=== PATIENT | female | born 1950 | race American Indian/Alaskan Native ===

== ENCOUNTER 2019-07-24 17:02 | Emergency (ER) | payer MEDICARE ==
[2019-07-24 18:57] VITALS: BP 166/65
--- NOTE | 2019-07-24 18:59 | Event Note ---
ED Screening Note Date of service: 07/24/19 Time: 18:56 ED Screening Note: 68 y/o female comes in for chronic back and leg pain. Was seen by her PCP last month and given an injection. She has been taking Meloxicam 15mh daily. Denies any recent injuries or falls. This initial assessment/diagnostic orders/clinical plan/treatment(s) is/are subject to change based on patients health status, clinical progression and re- assessment by fellow clinical providers in the ED. Further treatment and workup at subsequent clinical providers discretion. Patient/guardian urged not to elope from the ED as their condition may be serious if not clinically assessed and managed. Initial orders include:
[2019-07-24] MEDS ORDERED: oxyCODONE /ACETAMINOPHEN 5-325MG TAB PO ONE (20:00)
[2019-07-24] MEDS ORDERED: predniSONE 20 MG TAB PO ONE (20:00)
[2019-07-24] MEDS ORDERED: ONDANSETRON 4 MG ODT TAB PO ONE (20:00)
[2019-07-24 20:24] LABS: Basophils # (Auto) 0.1 K/mm3 (0.0-0.1); Basophils % (Auto) 1.2 % (0.0-1.8); Eosinophils # (Auto) 0.4 K/mm3 (0.0-0.4); Eosinophils % (Auto) 4.5 % (0.0-4.3); Hematocrit 37.1 % (30.3-42.9); Hemoglobin 12.7 gm/dl (10.1-14.3); Lymphocytes # (Auto) 2.1 K/mm3 (1.2-5.4); Lymphocytes % (Auto) 25.8 % (13.4-35.0); Mean Corpuscular HGB Conc 34 % (30-34); Mean Corpuscular Volume 85 fl (79-97); Monocytes # (Auto) 0.4 K/mm3 (0.0-0.8); Platelet Count 362 K/mm3 (140-440); Red Blood Count 4.34 M/mm3 (3.65-5.03); Red Cell Distribution Width 14.6 % (13.2-15.2)
[2019-07-24 20:52] LABS: Albumin 4.5 g/dL (3.9-5); Calcium 9.7 mg/dL (8.4-10.2)
[2019-07-24 21:09] LABS: Bilirubin,Urine NEG (Negative); Blood,Urine NEG (Negative); Color,Urine Yellow (Yellow); Mucus,Urine FEW /HPF; Protein,Urine <15 mg/dL mg/dL (Negative); Urobilinogen,Urine < 2.0 mg/dL (<2.0)
--- NOTE | 2019-07-24 21:46 | Emergency Department Report ---
ED Back Pain/Injury HPI - General Chief Complaint: Extremity Injury, Lower Stated Complaint: HIP/FEET PAIN Time Seen by Provider: 07/24/19 18:55 Source: patient Limitations: No Limitations - History of Present Illness Initial Comments: Patient is a 68-year-old female with a history of hypertension, chronic low back pain, chronic osteoarthritis and [id number] diabetes who presents to the ED with acute exacerbation of chronic low back pain radiating to the bilateral hips and bilateral knees for the last 2 weeks, worse in the last 3 days. Patient states that she has been taking meloxicam 15 mg daily with no relief. Patient denies fall, traumatic injury, dysuria, hematuria, urinary frequency and urgency, heavy lifting, nausea and vomiting, numbness and tingling or weakness of lower extremities bilaterally, urinary or bowel incontinence, fever and chills, abdominal pain, chest pain or shortness of breath. MD Complaint: back pain, other (bilateral) -: Gradual, week(s) (1) Similar Symptoms Previously: Yes Place: home Radiation: left leg, right leg Severity: severe Severity scale (0 -10): 7 Quality: sharp, aching Consistency: constant Improves With: none Worsens With: movement, walking Associated Symptoms: denies other symptoms. denies: confusion, weakness, chest pain, numbness, difficulty walking, cough, difficulty urinating, diaphoresis, fever/chills, constipation, abdominal pain, loss of appetite, nausea/vomiting, rash, shortness of breath, syncope Treatments Prior to Arrival: NSAIDS - Related Data Previous Rx's Medication Instructions Recorded Last Taken Type Ibuprofen [Motrin] 600 mg PO Q8H PRN #20 tablet 07/29/15 Unknown Rx diazePAM TAB [Valium] 2 mg PO TID PRN #12 tablet 07/29/15 Unknown Rx predniSONE [Deltasone] 40 mg PO QDAY #10 tab 07/24/19 Unknown Rx tiZANidine [Zanaflex 4mg TAB] 4 mg PO QHS PRN #15 tablet 07/24/19 Unknown Rx traMADoL [Ultram] 50 mg PO Q6HR PRN #15 tablet 07/24/19 Unknown Rx Allergies Allergy/AdvReac Type Severity Reaction Status Date / Time No Known Allergies Allergy Verified 07/29/15 10:39 ED Review of Systems ROS: Stated complaint: HIP/FEET PAIN Other details as noted in HPI Constitutional: denies: chills, fever Eyes: denies: eye pain, eye discharge, vision change ENT: denies: ear pain, throat pain Respiratory: denies: cough, shortness of breath, wheezing Cardiovascular: denies: chest pain, palpitations Endocrine: no symptoms reported Gastrointestinal: denies: abdominal pain, nausea, diarrhea Genitourinary: denies: urgency, dysuria, discharge Musculoskeletal: back pain (lower), arthralgia (bilateral hip and knee pain). denies: joint swelling Skin: denies: rash, lesions Neurological: denies: headache, weakness, paresthesias Psychiatric: denies: anxiety, depression Hematological/Lymphatic: denies: easy bleeding, easy bruising ED Past Medical Hx - Past Medical History Hx Hypertension: Yes Hx Diabetes: Yes - Surgical History Additional Surgical History: hysterectomy, cataract surgery - Social History Smoking Status: Never Smoker Substance Use Type: None - Medications Home Medications: Home Medications Medication Instructions Recorded Confirmed Last Taken Type Ibuprofen [Motrin] 600 mg PO Q8H PRN #20 tablet 07/29/15 Unknown Rx diazePAM TAB [Valium] 2 mg PO TID PRN #12 tablet 07/29/15 Unknown Rx predniSONE [Deltasone] 40 mg PO QDAY #10 tab 07/24/19 Unknown Rx tiZANidine [Zanaflex 4mg TAB] 4 mg PO QHS PRN #15 tablet 07/24/19 Unknown Rx traMADoL [Ultram] 50 mg PO Q6HR PRN #15 tablet 07/24/19 Unknown Rx ED Physical Exam - General Limitations: No Limitations General appearance: alert, in no apparent distress - Head Head exam: Present: atraumatic, normocephalic - Eye Eye exam: Present: normal appearance, PERRL, EOMI Pupils: Present: normal accommodation - ENT ENT exam: Present: normal exam, normal orophraynx, mucous membranes moist, TM's normal bilaterally, normal external ear exam - Neck Neck exam: Present: normal inspection, full ROM - Respiratory Respiratory exam: Present: normal lung sounds bilaterally. Absent: respiratory distress, wheezes, rales, rhonchi, chest wall tenderness, accessory muscle use, decreased breath sounds, prolonged expiratory - Cardiovascular Cardiovascular Exam: Present: regular rate, normal rhythm, normal heart sounds. Absent: systolic murmur, diastolic murmur, rubs, gallop - GI/Abdominal GI/Abdominal exam: Present: soft, normal bowel sounds. Absent: tenderness, guarding, hyperactive bowel sounds, hypoactive bowel sounds, organomegaly - Extremities Exam Extremities exam: Present: normal inspection, full ROM, tenderness (palpable bilateral hip and knee joint tenderness), normal capillary refill. Absent: joint swelling, calf tenderness - Back Exam Back exam: Present: normal inspection, full ROM, tenderness (palpable lumbosacral paraspinal musculoskeletal tenderness), muscle spasm, paraspinal tenderness - Neurological Exam Neurological exam: Present: alert, oriented X3, CN II-XII intact, normal gait, reflexes normal - Psychiatric Psychiatric exam: Present: normal affect, normal mood - Skin Skin exam: Present: warm, dry, intact, normal color. Absent: rash ED Course Vital Signs 07/24/19 18:55 Temperature 98.3 F Pulse Rate 87 Respiratory 18 Rate Blood Pressure 166/65 O2 Sat by Pulse 98 Oximetry ED Medical Decision Making - Lab Data Result diagrams: 07/24/19 20:03 07/24/19 20:03 - Medical Decision Making This is a 68-year-old female with a history of chronic osteoarthritis and chronic low back pain who presented to the ED with acute exacerbation of her chronic pain, characterized by bilateral hip and knee joint pains, low back pain and generalized muscle aches for the last 2 weeks. In the ED, patient is alert and oriented 3 and is most in distress but appears to be in pain. Lab test results were reviewed and all nonactionable except for slightly elevated BUN. Patient was treated for pain in the ED and on reevaluation, patient's pain is well controlled with medications. Patient's symptoms are likely due to chronic osteoarthritis and chronic pain. Patient was discharged home on pain me dications and advised to follow-up with primary care physician in 7-10 days for reevaluation or return to the ED immediately if symptoms get worse. - Differential Diagnosis Chronic pain; chronic osteoarthritis; Muscle strains Critical care attestation.: If time is entered above; I have spent that time in minutes in the direct care of this critically ill patient, excluding procedure time. ED Disposition Clinical Impression: Chronic osteoarthritis, Acute exacerbation of chronic low back pain, Spasm of muscle of lower back Disposition: - TO HOME OR SELFCARE Is pt being admited?: No Does the pt Need Aspirin: No Condition: Stable Instructions: Muscle Spasm (ED), Osteoarthritis (ED), Muscle Strain (ED) Additional Instructions: Take medications with food, drink plenty of fluids and follow-up with your primary care physician in 7-10 days for reevaluation. Return to ED immediately if symptoms worsen. Prescriptions: tiZANidine [Zanaflex 4mg TAB] 4 mg PO QHS PRN #15 tablet PRN Reason: Muscle Spasm predniSONE [Deltasone] 40 mg PO QDAY #10 tab traMADoL [Ultram] 50 mg PO Q6HR PRN #15 tablet PRN Reason: Pain Referrals: GREGG NAPOLES MD [Staff Physician] - 7-10 days Time of Disposition: 21:51 Print Language: CONGOLESE
== END 2019-07-24 22:06 | disposition home or self-care (01) ==
LOC: ED 17:02
DX: M19.90 Unspecified osteoarthritis, unspecified site (principal); M62.830 Muscle spasm of back; I10 Essential (primary) hypertension; E11.9 Type 2 diabetes mellitus without complications; Z90.710 Acquired absence of both cervix and uterus; Z98.890 Other specified postprocedural states; Z79.1 Long term (current) use of non-steroidal anti-inflammatories (NSAID); Z79.899 Other long term (current) drug therapy
CPT/HCPCS: 36415; 80053; 81001; 85025; 99283; J7512; Q0162

== ENCOUNTER 2019-08-04 12:47 | Outpatient (CLI) | payer MEDICARE ==
--- NOTE | 2019-08-04 13:35 | XRay Report ---
HISTORY:PAIN IN RIGHT HIP COMPARISON: None. TECHNIQUE: AP lateral and obliques views were obtained FINDINGS: Bones: No fracture or dislocation. Joint spaces: Maintained. Soft tissues: No significant abnormality. Additional findings: Extensive degenerative changes lumbar sacral spine IMPRESSION: 1. No significant abnormality. Signer Name: Sreedhar Traylor MD Signed: 08/04/2019 1:31 PM Workstation Name: [id number]
== END 2019-08-04 12:48 | disposition home or self-care (01) ==
LOC: XRAY 12:47
PROVIDERS: ATTEND Orthopaedic Surgery
DX: M25.551 Pain in right hip (principal); M47.817 Spondylosis without myelopathy or radiculopathy, lumbosacral region

== ENCOUNTER 2019-08-27 10:03 | Outpatient (CLI) | payer MEDICARE ==
--- NOTE | 2019-08-27 10:56 | XRay Report ---
LUMBAR SPINE, AP, LATERAL AND OBLIQUE VIEWS 08/27/2019 INDICATION / CLINICAL INFORMATION: LOW BACK PAIN. COMPARISON: None available. FINDINGS: Degenerative changes are seen at the L4-L5 and L5-S1 disc levels. Facet joint degenerative changes are also identified at these levels. Grade 1 anterior spondylolisthesis of L4 on L5. No compression fractures. No evidence of spondylolysis. Signer Name: Lion Pak MD Signed: 08/27/2019 10:51 AM Workstation Name: [employer]
== END 2019-08-27 10:04 | disposition home or self-care (01) ==
LOC: XRAY 10:03
PROVIDERS: ATTEND Orthopaedic Surgery
DX: M43.06 Spondylolysis, lumbar region (principal)
CPT/HCPCS: 72110

== ENCOUNTER 2019-10-01 10:14 | Outpatient (CLI) | payer MEDICARE ==
--- NOTE | 2019-10-01 11:54 | Cat Scan Report ---
CT LUMBAR SPINE: 10/01/2019 INDICATION / CLINICAL INFORMATION: LOW BACK PAIN. COMPARISON: None available. FINDINGS: CT images of the lumbar spine were obtained. Images are evaluated in the axial, coronal, and sagittal planes. There is no evidence of acute abnormality. Prominent degenerative changes are present in the lower l umbar spine as detailed below. LEVEL BY LEVEL ANALYSIS: L5-S1: The L5-S1 disc space is essentially fused. Circumferential osteophyte formation is present, a s associated with moderate central canal narrowing and prominent bilateral foraminal encroachment. L4-5: There is a grade 1 anterolisthesis associated with prominent bilateral facet degenerative holly es and diffuse disc bulging, resulting in severe stenosis of the central canal and bilateral foramina l narrowing. L3-4: Mild diffuse disc bulging and moderate facet degenerative changes. L2-3: Unremarkable. L1-2: Unremarkable. PARASPINAL STRUCTURES: Unremarkable. Incidental note is made of a contracted gallbladder with what appears to be a single large periphera lly calcified stone. There is no evidence of inflammation. IMPRESSION: Degenerative changes as described above, most prominently at L4-5. All CT scans at this location are performed using dose reduction to ALARA by means of automated expos ure control. Signer Name: Babak Christianson MD Signed: 10/01/2019 11:49 AM Workstation Name: [id number]
== END 2019-10-01 10:15 | disposition home or self-care (01) ==
LOC: CT 10:14
PROVIDERS: ATTEND Orthopaedic Surgery
DX: M47.816 Spondylosis without myelopathy or radiculopathy, lumbar region (principal); M54.5 Low back pain
CPT/HCPCS: 72131